=== PATIENT | male | born 1955 | race Caucasian/White ===

== ENCOUNTER 2017-12-16 22:07 | Inpatient (IN) | payer OTHER ==
[~2017-12-16] VITALS: Ht 177.8 cm; Wt 83.9 kg
[2017-12-16] MEDS ORDERED: TAMS0.4C34 (22:37)
[2017-12-16] MEDS ORDERED: CARV25TA2 (22:37)
[2017-12-16] MEDS ORDERED: LISI10TA5 (22:37)
[2017-12-16] MEDS ORDERED: FURO-152 (22:37)
[2017-12-16] MEDS ORDERED: RIVA10TA (22:37)
[2017-12-16] MEDS ORDERED: ATOR40TA (22:37)
[2017-12-16] MEDS ORDERED: ASPIRIN 81 MG TAB.CHEW PO ONE (23:00)
[2017-12-16] MEDS ORDERED: ASPIRIN 325 MG TABLET ONE (23:10)
[2017-12-16 23:19] LABS: CREATININE 0.9 mg/dL (0.6-1.3); POTASSIUM 4.1 mmol/L (3.5-5.1)
[2017-12-16 23:25] LABS: BASOPHILS # (AUTO) 0.1 K/uL (0.0-8.0); BASOPHILS % (AUTO) 0.9 % (0.0-2.0); EOSINOPHILS # (AUTO) 0.4 K/uL (0.0-0.7); EOSINOPHILS % (AUTO) 5.9 % (0.0-7.0); HEMATOCRIT 35.7 % (36.7-47.1); HEMOGLOBIN 11.9 g/dL (12.5-16.3); LYMPHOCYTES # (AUTO) 1.7 K/uL (20.0-40.0); LYMPHOCYTES % (AUTO) 27.1 % (20.5-51.5); MEAN CORPUSCULAR HEMOGLOBIN 28.9 uug (23.8-33.4); MEAN CORPUSCULAR HGB CONC 33 g/dL (32.5-36.3); MEAN CORPUSCULAR VOLUME 86.3 fL (73.0-96.2); MONOCYTES # (AUTO) 0.5 K/uL (2.0-10.0); MONOCYTES % (AUTO) 8.2 % (0.0-11.0); NEUTROPHILS # (AUTO) 3.6 K/uL (1.8-8.9); NEUTROPHILS % (AUTO) 57.9 % (38.5-71.5); PLATELET COUNT (AUTO) 164 K/uL (152-348); RED BLOOD CELL COUNT(AUTO) 4.13 MIL/uL (4.06-5.63); WHITE BLOOD COUNT (AUTO) 6.2 K/uL (3.6-10.2)
[2017-12-17 01:15] VITALS: BP 147/84
[2017-12-17] MEDS ORDERED: ACETAMINOPHEN 325 MG TABLET PO PRN (01:30)
[2017-12-17] MEDS ORDERED: ONDANSETRON 4 MG/2 ML VIAL IV PRN (01:30)
[2017-12-17] MEDS ORDERED: Z GUARD REMEDY PASTE 57 GM TUBE TOP PRN (01:30)
[2017-12-17] MEDS ORDERED: MORPHINE SULFATE 2 MG/1 ML DISP.SYRIN IV PRN (01:30)
[2017-12-17 04:24] VITALS: BP 144/84
[2017-12-17] MEDS ORDERED: NITROGLYCERIN OINT 1 GM PACKET TP ONE (05:43)
[2017-12-17] MEDS: NITROGLYCERIN OINT 1 GM PACKET TP SCH ×2 (05:50→11:29)
[2017-12-17 07:08] LABS: BILIRUBIN,TOTAL 0.5 mg/dL (0.2-1.0); CREATININE 0.7 mg/dL (0.6-1.3); MAGNESIUM 1.8 mg/dL (1.8-2.4); PHOSPHOROUS 4.4 mg/dL (2.5-4.9); POTASSIUM 4.2 mmol/L (3.5-5.1); TOTAL PROTEIN, SERUM 6.4 g/dL (6.4-8.2)
[2017-12-17 07:12] LABS: BASOPHILS # (AUTO) 0.1 K/uL (0.0-8.0); BASOPHILS % (AUTO) 0.8 % (0.0-2.0); EOSINOPHILS # (AUTO) 0.3 K/uL (0.0-0.7); EOSINOPHILS % (AUTO) 5.8 % (0.0-7.0); HEMATOCRIT 35.1 % (36.7-47.1); HEMOGLOBIN 11.5 g/dL (12.5-16.3); LYMPHOCYTES # (AUTO) 1.7 K/uL (20.0-40.0); LYMPHOCYTES % (AUTO) 28.5 % (20.5-51.5); MEAN CORPUSCULAR HEMOGLOBIN 28.3 uug (23.8-33.4); MEAN CORPUSCULAR HGB CONC 33 g/dL (32.5-36.3); MEAN CORPUSCULAR VOLUME 86.3 fL (73.0-96.2); MONOCYTES # (AUTO) 0.5 K/uL (2.0-10.0); MONOCYTES % (AUTO) 7.7 % (0.0-11.0); NEUTROPHILS # (AUTO) 3.5 K/uL (1.8-8.9); NEUTROPHILS % (AUTO) 57.2 % (38.5-71.5); PLATELET COUNT (AUTO) 164 K/uL (152-348); RED BLOOD CELL COUNT(AUTO) 4.07 MIL/uL (4.06-5.63); WHITE BLOOD COUNT (AUTO) 6.1 K/uL (3.6-10.2)
[2017-12-17 07:32] LABS: THYROID STIMULATING HORMONE 3.848 mIU/mL (0.358-3.740)
[2017-12-17] MEDS ORDERED: MORPHINE SULFATE 4 MG/1 ML DISP.SYRIN IV PRN (08:30)
[2017-12-17] MEDS ORDERED: TAMSULOSIN HCL 0.4 MG CAP.SR.24H PO SCH (09:00)
[2017-12-17] MEDS ORDERED: RIVAROXABAN 10 MG TABLET PO SCH ×2 (09:00→18:00)
[2017-12-17] MEDS ORDERED: CARVEDILOL 25 MG TABLET PO SCH (09:00)
[2017-12-17] MEDS ORDERED: LISINOPRIL 10 MG TABLET PO SCH (09:00)
[2017-12-17] MEDS ORDERED: FUROSEMIDE 20 MG TABLET PO SCH (09:00)
[2017-12-17] MEDS ORDERED: ASPIRIN EC 81 MG TABLET.DR PO SCH (09:00)
[2017-12-17 11:16] VITALS: BP 129/73
[2017-12-17 15:03] VITALS: BP 146/78
[2017-12-17] MEDS ORDERED: ATORVASTATIN 40 MG TABLET PO SCH (21:00)
== END 2017-12-17 16:20 | disposition home or self-care (01) | DRG 392 ==
LOC: ER 22:07 → TELE 12-17 00:19
PROVIDERS: ADMIT Nurse Practitioner Acute Care; ATTEND Nurse Practitioner Acute Care
DX: K21.9 Gastro-esophageal reflux disease without esophagitis (principal); I11.0 Hypertensive heart disease with heart failure; E88.09 Other disorders of plasma-protein metabolism, not elsewhere classified; I50.32 Chronic diastolic (congestive) heart failure; I48.2 Chronic atrial fibrillation; D63.8 Anemia in other chronic diseases classified elsewhere; I25.2 Old myocardial infarction; Z87.891 Personal history of nicotine dependence; Z79.01 Long term (current) use of anticoagulants; Z82.49 Family history of ischemic heart disease and other diseases of the circulatory system; N40.0 Benign prostatic hyperplasia without lower urinary tract symptoms; I25.10 Atherosclerotic heart disease of native coronary artery without angina pectoris; I70.0 Atherosclerosis of aorta; E78.5 Hyperlipidemia, unspecified
CPT/HCPCS: 36415; 70030-TC; 71045; 83735; 84100; 84443; 85025; 85730; 93005; 93307; A4663

== ENCOUNTER 2018-01-04 17:23 | Inpatient (IN) | payer OTHER ==
[~2018-01-04] VITALS: Ht 177.8 cm; Wt 81.6 kg
[~2018-01-04 17:23] MED LIST: ATOR40TA PO; CARV25TA2; FURO-152; LISI10TA5; RIVA10TA; TAMS0.4C34 PO
--- NOTE | 2018-01-04 17:40 | NUR ---
Patient is seen talking on his personal electronic device with full sentences, no SOB seen, pending MD evaluation
[2018-01-04] MEDS ORDERED: RIVA10TA PO (17:42)
--- NOTE | 2018-01-04 18:52 | NUR ---
Dr Moon is now at bedside evaluating the patient, pending MD orders
[2018-01-04] MEDS ORDERED: IV NORMAL SALINE 1000 ML BAG IV ONE (19:00)
--- NOTE | 2018-01-04 19:01 | NUR ---
Hands off report given to RN Néstor malone
--- NOTE | 2018-01-04 19:33 | NUR ---
Hans abebe in [facility] - 01/04/18 at 1948 by CHILO Pt taken to CT
[2018-01-04 20:06] LABS: BASOPHILS # (AUTO) 0.1 K/uL (0.0-8.0); BASOPHILS % (AUTO) 1.4 % (0.0-2.0); EOSINOPHILS # (AUTO) 0.4 K/uL (0.0-0.7); EOSINOPHILS % (AUTO) 8.1 % (0.0-7.0); HEMATOCRIT 36.3 % (36.7-47.1); LYMPHOCYTES # (AUTO) 1.4 K/uL (20.0-40.0); LYMPHOCYTES % (AUTO) 25.5 % (20.5-51.5); MEAN CORPUSCULAR HEMOGLOBIN 28.4 uug (23.8-33.4); MEAN CORPUSCULAR HGB CONC 33 g/dL (32.5-36.3); MEAN CORPUSCULAR VOLUME 86.3 fL (73.0-96.2); MONOCYTES # (AUTO) 0.6 K/uL (2.0-10.0); MONOCYTES % (AUTO) 10.9 % (0.0-11.0); NEUTROPHILS # (AUTO) 2.9 K/uL (1.8-8.9); NEUTROPHILS % (AUTO) 54.1 % (38.5-71.5); PLATELET COUNT (AUTO) 166 K/uL (152-348); WHITE BLOOD COUNT (AUTO) 5.4 K/uL (3.6-10.2)
[2018-01-04 20:12] LABS: CREATININE 1.1 mg/dL (0.6-1.3)
[2018-01-04 20:26] LABS: BILIRUBIN,DIRECT 0.4 mg/dL (0.0-0.2); BILIRUBIN,TOTAL 1.6 mg/dL (0.2-1.0); TOTAL PROTEIN, SERUM 6.6 g/dL (6.4-8.2)
--- NOTE | 2018-01-04 21:13 | NUR ---
Pt resting in bed, no complaints, no distress noted.
[2018-01-04] MEDS ORDERED: ASPIRIN 81 MG TAB.CHEW PO ONE (21:15)
[2018-01-04 21:43] LABS: *BILIRUBIN,URIN NEGATIVE (NEGATIVE); *BLOOD, URINE NEGATIVE (NEGATIVE); *CLARITY,URINE SLIGHTLY CLOUDY (CLEAR); *COLOR,URINE YELLOW (YELLOW); *KETONES,URINE NEGATIVE (NEGATIVE); *PROTEIN,URINE NEGATIVE (NEGATIVE); LEUKOCYTE ESTERASE ,URINE NEGATIVE (NEGATIVE); NITRITE, URINE NEGATIVE (NEGATIVE); UGLUCOSE NEGATIVE (NEGATIVE)
[2018-01-04] MEDS ORDERED: ASPIRIN 81 MG TAB.CHEW ONE (21:48)
[2018-01-04 21:51] LABS: BACTERIA,URINE NONE SEEN /HPF (NONE SEEN); SQUAMOUS EPITHELIAL CELL,UR FEW /HPF (NONE SEEN)
--- NOTE | 2018-01-04 22:56 | NUR ---
Called report to MARIIA Moctezuma
[2018-01-04] MEDS ORDERED: IV NS 1000 ML 1,000 ML IV PRN (23:43)
[2018-01-04 23:45] VITALS: BP 120/74
[2018-01-04] MEDS ORDERED: ACETAMINOPHEN 325 MG TABLET PO PRN (23:45)
[2018-01-04] MEDS ORDERED: Z GUARD REMEDY PASTE 57 GM TUBE TOP PRN (23:45)
[2018-01-04] MEDS ORDERED: MAGNESIUM HYDROXIDE 30 ML LIQUID UDC PO PRN (23:45)
[2018-01-04] MEDS ORDERED: ZOLPIDEM 5 MG TABLET PO PRN (23:45)
[2018-01-04] MEDS ORDERED: HYDROCODONE/APAP 5-325MG TABLET PO PRN (23:45)
[2018-01-04] MEDS ORDERED: ONDANSETRON 4 MG/2 ML VIAL IV PRN (23:45)
[2018-01-04] MEDS ORDERED: MORPHINE SULFATE 2 MG/1 ML DISP.SYRIN IV PRN (23:45)
[2018-01-04] MEDS ORDERED: NITROGLYCERIN 0.4 MG/TAB BOTTLE SL PRN (23:45)
[2018-01-05 04:00] VITALS: BP 118/68
[2018-01-05 06:54] LABS: BASOPHILS # (AUTO) 0.1 K/uL (0.0-8.0); BASOPHILS % (AUTO) 1.2 % (0.0-2.0); EOSINOPHILS # (AUTO) 0.4 K/uL (0.0-0.7); EOSINOPHILS % (AUTO) 8.4 % (0.0-7.0); HEMATOCRIT 34.9 % (36.7-47.1); HEMOGLOBIN 11.5 g/dL (12.5-16.3); LYMPHOCYTES # (AUTO) 1.4 K/uL (20.0-40.0); LYMPHOCYTES % (AUTO) 27.1 % (20.5-51.5); MEAN CORPUSCULAR HEMOGLOBIN 28.2 uug (23.8-33.4); MEAN CORPUSCULAR HGB CONC 33 g/dL (32.5-36.3); MEAN CORPUSCULAR VOLUME 85.8 fL (73.0-96.2); MONOCYTES # (AUTO) 0.5 K/uL (2.0-10.0); MONOCYTES % (AUTO) 10.4 % (0.0-11.0); NEUTROPHILS # (AUTO) 2.6 K/uL (1.8-8.9); NEUTROPHILS % (AUTO) 52.9 % (38.5-71.5); PLATELET COUNT (AUTO) 149 K/uL (152-348); RED BLOOD CELL COUNT(AUTO) 4.07 MIL/uL (4.06-5.63)
[2018-01-05 07:09] LABS: CREATININE 0.8 mg/dL (0.6-1.3); MAGNESIUM 1.8 mg/dL (1.8-2.4); PHOSPHOROUS 4.4 mg/dL (2.5-4.9)
[2018-01-05 08:28] LABS: THYROID STIMULATING HORMONE 1.828 mIU/mL (0.358-3.740)
--- NOTE | 2018-01-05 08:30 | NUR ---
RECEIVED SHIFT REPORT FROM NIGHTSHIFT NURSE. PATIENT A/OX3. APPEARS TO BE ANXIOUS BUT IN STABLE CONDITION, NO S/S OF DISTRESS. AMBULATORY. MORNING MEDICATIONS ADMINISTERED. BED IN LOCKED/LOW POSITION, SIDE RAILS UP X2, CALL LIGHT WITHIN REACH.
[2018-01-05] MEDS ORDERED: ATORVASTATIN 40 MG TABLET PO SCH (09:00)
[2018-01-05] MEDS ORDERED: ASPIRIN EC 81 MG TABLET.DR PO SCH (09:00)
[2018-01-05] MEDS ORDERED: RIVAROXABAN 10 MG TABLET PO SCH (09:00)
[2018-01-05] MEDS ORDERED: TAMSULOSIN HCL 0.4 MG CAP.SR.24H PO SCH (09:00)
[2018-01-05] MEDS ORDERED: POTASSIUM CHLORIDE 20 MEQ TAB.PRT.SR PO ONE ×2 (10:45→14:00)
[2018-01-05 11:15] VITALS: BP 113/64
[2018-01-05] MEDS ORDERED: LISI10TA5 PO (13:25)
--- NOTE | 2018-01-05 15:30 | NUR ---
PATIENT BEING DISCHARGED AT THIS TIME IN STABLE CONDITION. NO S/S OF DISTRESS. VITAL SIGNS ARE STABLE. BELONGINGS CHECKLIST COMPLETED, SIGNED BY PATIENT. PATIENT'S HOME MEDICATIONS GIVEN BACK TO PATIENT. DISCHARGE DOCUMENTATION GIVEN. DISCHARGE INSTRUCTIONS AND EDUCATION PROVIDED TO PATIENT. PATIENT VERBALIZED UNDERSTANDING. BEING DISCHARGED HOME. SAFE CONDITION.
== END 2018-01-05 15:30 | disposition home or self-care (01) | DRG 640 ==
LOC: ER 17:24 → TELE 23:06
DX: E86.0 Dehydration (principal); I21.A1 Myocardial infarction type 2; D68.59 Other primary thrombophilia; I50.32 Chronic diastolic (congestive) heart failure; J98.11 Atelectasis; I95.1 Orthostatic hypotension; I11.0 Hypertensive heart disease with heart failure; I48.2 Chronic atrial fibrillation; D64.9 Anemia, unspecified; I25.2 Old myocardial infarction; N40.0 Benign prostatic hyperplasia without lower urinary tract symptoms; Z87.01 Personal history of pneumonia (recurrent); Z79.01 Long term (current) use of anticoagulants; Z79.899 Other long term (current) drug therapy; K21.9 Gastro-esophageal reflux disease without esophagitis; N20.0 Calculus of kidney; M54.31 Sciatica, right side; Z87.891 Personal history of nicotine dependence; Z82.49 Family history of ischemic heart disease and other diseases of the circulatory system; F10.20 Alcohol dependence, uncomplicated; Y90.9 Presence of alcohol in blood, level not specified; F14.10 Cocaine abuse, uncomplicated
CPT/HCPCS: 36415; 70030-TC; 70450; 71045; 83605; 83735; 84100; 84443; 85025; 85730; 86850; 86900; 86901; 87040; 87086; 93005; A4663; J7030